=== PATIENT | male | born 1970 | race Caucasian/White ===

== ENCOUNTER → 2021-10-10 10:05 | Outpatient (CLI) | payer OTHER, SELFPAY | PROVIDERS: PCP Internal Medicine; Visit Provider Family Medicine | DX: Z23 Encounter for immunization (principal) | CPT/HCPCS: 0004A; 91300 ==

== ENCOUNTER 2023-07-31 11:00 | Outpatient (RCR) | payer OTHER, SELFPAY ==
--- NOTE | 2023-07-10 18:56 | HP.PTEVAL ---
Patient's Visit Information Visit Information Visit Information: LINH MORENO is a 53 year old M referred to Physical Therapy by THOMAS ESCUDERO with a diagnosis of L knee and achilles pain. Date of Evaluation: 07/10/23 Physical Therapist: Bobby Llanes, PT, ATC Visit Plan Frequency: 2x /Week Duration: 3 Weeks Plan: L knee stretching and strengthening (quads), core stab ex's, DTR to L quad/gastroc regions, and HEP Subjective Subjective: DOI: 05/20/23. Pt notes he was getting off a machine in the [employer] dept when he banged his L knee on a machine. Pt notes he has had pain since. 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 Pt reports he had x rays taken at the time which revealed no significant findings. 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 Pt notes due to compensation of the L knee pain, his L ankle is getting sore now. Pt reports he has sleep difficulty at this time secondary to pain. Pt reports he is going to see an orthopedic in the near future. Pt reports he has difficulty with driving at this time secondary to pain. Pt reports his goal is to get feeling better soon so he can return to his normal daily activities without pain. No tingling or numbness in L LE. Pt notes he has stairs at work that he has avoided secondary to pain. L knee doesnt lock up, but does give out on him on occasion. Pain L knee: Pain Intensity (Out of 10): 1 Pain Intensity Range: 10 L ankle: Pain Intensity (Out of 10): 1 Pain Intensity Range: 4 Objective Objective: Neuro: B LE sensation is WNL to light touch. B patellar reflex= 2/3 Palpation: Pt is sore along the lateral joint line of the L knee. No obvious swelling or deformity at this time. ROM: L knee 0-2-127, R knee 0-2-147. L ankle DF = -2, R ankle DF = 10 degrees MMT: R knee flex= 39, ext= 58 #F; L knee flex= 39, ext= 47 #F Special testing: No pos tests this date Balance/Special Test Scores Lower Extremity Functional Score: 36 Goals Goal 1:: Decrease L knee pain x 50% to aid with sleep Goal Time Frame: 4-6 Weeks Goal 2:: Increase L ankle DF ROM x 10 degrees to aid with decreasing pain Goal Time Frame: 4-6 Weeks Goal 3:: Increase L knee ext strength x 5-10 #F to aid with stair negotiation Goal Time Frame: 4-6 Weeks Goal 4:: I with HEP Goal Time Frame: 2-4 Weeks Rehabilitation Potential Physical Therapy Diagnosis: Pt has L knee pain, weakness, and limited ROM secondary to L knee contusion Rehabilitation Potential: Good Anticipated Interventions Patient/Client Instruction: Educate patient on: Condition and Plan of Care For the Purpose of:: To improve self management Therapeutic Exercise to Include: Strength training, Endurance training, Balance training, Flexibilty training, Active ROM and Dynamic Lumbar Stabilization For the Purpose of:: To decrease pain, To increase ROM and To improve muscle performance and motor function Manual Therapy Techniques to Include: Soft tissue mobilization For the Purpose of:: To decrease pain and To increase ROM Text: Thank you for the opportunity to evaluate your patient. For Medicare and Medicare HMO plans, please review the plan of care and approve it. It will need to be FAXED BACK to us at [phone] for Medicare purposes. For Medicare only, by signing this I certify the plan of care. Please let me know if there are questions or concerns regarding this plan of care. Physician Signature: Date:
--- NOTE | 2023-11-06 12:16 | HP.PT.NRP ---
Patient Information Patient Information: LINH MORENO was seen in my office for initial evaluation on 07/10/23. The following Plan of Care was established for this patient: POC Established Initial Frequency: 2x /Week Initial Duration: 3 Weeks Anticipated Interventions Patient/Client Instruction: Educate patient on: Condition and Plan of Care For the Purpose of:: To improve self management Therapeutic Exercise to Include: Strength training, Endurance training, Balance training, Flexibilty training, Active ROM and Dynamic Lumbar Stabilization For the Purpose of:: To decrease pain, To increase ROM and To improve muscle performance and motor function Manual Therapy Techniques to Include: Soft tissue mobilization For the Purpose of:: To decrease pain and To increase ROM Last Seen Last Seen: This patient was last seen in our office . Pertinent comments regarding their Physical therapy will appear below: Pt was treated for 6 PT visits for L LE pain through the date of 07/31/23. Pt has not returned through todays date and is discontinued at this time. At this point I will be discontinuing this patient from physical therapy. I would be happy to see this patient again in the future if found appropriate by the physician. Thank you! Bobby Llanes, PT, ATC Balance/Gait/Functional tests Balance/Special Test Scores Lower Extremity Functional Score: 36
== END 2023-07-31 19:00 | disposition home or self-care (01) ==
LOC: PT 11:00
PROVIDERS: PCP Internal Medicine; Referring Provider Nurse Practitioner; Visit Provider Nurse Practitioner
DX: M25.572 Pain in left ankle and joints of left foot (principal); M25.562 Pain in left knee
CPT/HCPCS: 97110; 97161

== ENCOUNTER 2024-07-20 10:59 | Outpatient (RCR) | payer SELFPAY | END 2024-07-20 19:00 | disposition home or self-care (01) | LOC: PT 10:59 | PROVIDERS: PCP Internal Medicine | DX: M79.662 Pain in left lower leg (principal) ==

== ENCOUNTER 2024-08-10 09:30 | Outpatient (RCR) | payer OTHER, SELFPAY ==
--- NOTE | 2024-07-07 08:36 | HP.OTEVAL ---
Patient's Visit Information Visit Information Visit Information: LINH MORENO is a 54 year old M, referred to Occupational Therapy by ELLY HARRIS, with a diagnosis of right distal biceps injury/coronoid process fx. Date of Evaluation: 07/06/24 Occupational Therapist: Jennifer Dill, OTR/[place], CHT Subjective Subjective: This 54 year old male was seen for OT eval with dx of a right closed nondisplaced fx of coronoid process of ulna with injury to biceps tendon. Pt states May 11 2024 while arm wrestling he suffered a right biceps distal injury with coronoid process fx. pt now arrives 8 weeks from DOI with residual soreness and limited strength to perform daily tasks. Pt would like to know what more he can do to improve his strength and return to his PLOF. pt referred by Dr. Harris with eval and treat, stretching, strengthening, modalities and instructions for exercises. As well as eval for biceps tendon injury. Pain right elbow: Current Pain Intensity: 3 Pain Intensity Range: 0 and 5 ROM Elbow: right 0/145 left 0/145 Forearm: right supination 65 sight pull at right elbow left 70 Strength Elbow: right triceps 28# left 27# biceps R 30# left 33# Crop Or Grain Farmer: right 70# left 87# Lateral Pinch: right 22# left 22# Tripod Pinch: right 18# left 18# Strength Comments: pt demo discomfort with forearm supination Sensation Sensation Comments: denies Quick DASH-Disab of Arm,Shoulder& Hand Quick DASH Score: 23.3325 Goals Goal:ROM equal to unaffected hand: Yes Goal:Crop Or Grain Farmer/Pinch strength at least 75% of unaffected hand: Yes Goal:No pain with affected hand use: Yes Goal:Full use of affected hand in daily activities including work: Yes Other Goal: pt will demo full functional use of right UE without noted elbow pain greater than 2/10 with use by d/c pt will demo understanding of lifting ergo to avoid stress of elbow with lifting and returning to daily tasks. Rehabilitation General Assessment: pt arrives to OT demo with weakness and discomfort with end range of his forearm motion. this limits pts IND with ADLs and IADLs. Pt would benefit from skilled OT services 1-2x week for 8 weeks to return pt to his PLOF. Today therapist ed. pt on isometric ex at 30% force and initiation of light use with wt. pt demo understanding and agrees to POC. Rehabilitation Potential: Good Anticipated Interventions Anticipated Interventions: A/AAROM/PROM, Strengthening, Triggerpoint Release, Modalities, Joint Protection/Energy Conservation, Ergonomic Education, Education re Diagnosis and Home Program Visit Plan Frequency: 1-2x /Week Duration: 2 Months TEXT: Thank you for the opportunity to evaluate your patient. For Medicare and Medicare HMO plans, please review the plan of care and approve it. It will need to be FAXED BACK to us at [phone] for Medicare purposes. Please let me know if there are questions or concerns regarding this plan of care. Physician Signature: Date:
--- NOTE | 2024-08-10 09:53 | HP.OTDCSUM ---
Discharge Summary D/C Summary: It has been my pleasure to treat LINH MORENO under orders from ELLY SCOTT, for the diagnosis of right distal biceps injury/coronoid process fx for a total of 4 visit(s). Please see the following information for a summary of their discharge status. Overall Improvement % Improvement: 85 Objective Objective/Function: demolitionist strength right 85# initial was 70# left 70# lateral pinch right 22# left 24# tripod pinch right 22# left 22# peak force Fet2 right triceps 35# inital was 28# Left triceps 35# inital was 33# right Biceps 33# initial was 32# left Biceps 33# initial was 33# pt has made gains with his strength and recovery: pt is cont. with Gym ex. program. Pt is exceptional person to work with. Goals Patient Goals: Regain Mobility, Regain Strength, Use Hand/Wrist/Arm Normally Again and Be More Independent in ADLS Goal:ROM equal to unaffected hand: Yes Goal Progress: Goal Met Goal:Physical Meteorologist/Pinch strength at least 75% of unaffected hand: Yes Goal Progress: Goal Met Goal:No pain with affected hand use: Yes Goal:Full use of affected hand in daily activities including work: Yes Goal Progress: Goal Met Other Goal: pt will demo full functional use of right UE without noted elbow pain greater than 2/10 with use by d/c (goal met) pt will demo understanding of lifting ergo to avoid stress of elbow with lifting and returning to daily tasks. (goal met) Plan Plan: D/C D/C Information Discharge Comments: pt was seen for 4 OT sessions - therapist ed. pt on dx and progression with healing. pt demo understanding and has continued with a PRE on [facility]. pt has met OT goals and is d/c at this time. d/c sentence: If there are questions or concerns regarding this patient's occupational therapy, please fell free to call me at [phone]. Thank you for the referral of this patient. Sincerely, Jennifer Dill, OTR/L, CHT
== END 2024-08-10 19:00 | disposition home or self-care (01) ==
LOC: OT 09:30
PROVIDERS: PCP Internal Medicine
DX: S52.045D Nondisplaced fracture of coronoid process of left ulna, subsequent encounter for closed fracture with routine healing (principal); S46.20 Unspecified injury of muscle, fascia and tendon of other parts of biceps
CPT/HCPCS: 97035; 97110; 97140; 97166